=== PATIENT | male | born 1970 | race Caucasian/White ===

== ENCOUNTER 2016-08-11 19:27 | Emergency (ER) | payer SELFPAY ==
[~2016-08-11] VITALS: Ht 195.5 cm; Wt 134.3 kg
[~2016-08-11 19:27] MED LIST: ADVAIR 100/501 E1 INH; ALBUTEROL INH; ALLEGRA180 MG PO; AMOXICILLIN500 M2 PO; ANAPROX DS550 MG PO; ASPIRIN81 M1 PO; ATENOLOL50 MG PO; BACTRIM DS 8001 TA1 PO; CATAPRES0.1 MG PO; CIPRO500 MG PO; CLARITIN10 MG PO; COLCRYS0.6 M1 PO; COREG25 MG PO; DAYPRO600 M1 PO; DOXYCYCLINE MO100 MG PO; FLAGYL500 MG PO; FLEXERIL10 MG PO; FLONASE ALLERG9.9 ML NAS; HYDROCODONE BIT1 T11 PO; INDOCIN25 MG PO; INDOMETHACIN50 MG PO; KEFLEX500 MG PO; LEVOFLOXACIN500 MG PO; LEVOSTATIN PO; LISINOPRIL5 MG PO; MEDROL DOSEPAK4 MG PO; MOTRIN800 MG PO; NEXIUM20 MG PO; NEXIUM40 MG PO; NKHM; NORCO 325 MG-101 TAB PO; NORCO 5-325 TA1 EACH PO; PERCOCET 325 MG1 TA2 PO; PHENERGAN W/DM120 ML PO; PREDNISONE10 MG PO; PREDNISONE20 M1 PO; PREDNISONE20 MG PO; PROAIR HFA0.09 MG/AC IH; PROAIR HFA8.5 GM IH; ROBAXIN500 M1 PO; ROBAXIN750 MG PO; ROBITUSSIN DM 105 ML PO; SKELAXIN800 MG PO; TESSALON PERLE100 MG PO; TOPROL XL25 MG PO; TRAZADONE PO; ULTRAM50 MG PO; VIBRAMYCIN100 MG PO; VICODIN 500 MG-1 TAB PO; ZITHROMAX Z PA250 MG PO; ZITHROMAX250 MG PO; ZYRTEC10 MG PO; Zestril,Prinivil5 MG PO
[2016-08-11 19:34] VITALS: BP 188/97
[2016-08-11] MEDS ORDERED: TESSALON PERLE100 M1 PO (20:09)
== END 2016-08-11 20:27 | disposition home or self-care (01) ==
LOC: ED 19:27
DX: J02.8 Acute pharyngitis due to other specified organisms (principal); F17.200 Nicotine dependence, unspecified, uncomplicated; Z88.6 Allergy status to analgesic agent

== ENCOUNTER 2016-08-13 15:50 | Emergency (ER) | payer SELFPAY ==
[~2016-08-13] VITALS: Ht 195.5 cm; Wt 131.5 kg
[~2016-08-13 15:50] MED LIST changes: +TESSALON PERLE100 M1 PO
[2016-08-13 16:29] VITALS: BP 164/97
[2016-08-13] MEDS ORDERED: TOBREX OPHTH S2.5 ML OPH (17:10)
[2016-08-13] MEDS ORDERED: ACULAR 0.5%3 ML OPH (17:10)
== END 2016-08-13 17:21 | disposition home or self-care (01) ==
LOC: ED 15:50
DX: S05.02XA Injury of conjunctiva and corneal abrasion without foreign body, left eye, initial encounter (principal); F17.200 Nicotine dependence, unspecified, uncomplicated; Z98.890 Other specified postprocedural states; Z95.0 Presence of cardiac pacemaker; Z79.82 Long term (current) use of aspirin; Z79.899 Other long term (current) drug therapy; Z88.5 Allergy status to narcotic agent; Z88.6 Allergy status to analgesic agent; X58.XXXA Exposure to other specified factors, initial encounter; Y93.89 Activity, other specified; Y92.89 Other specified places as the place of occurrence of the external cause; Y99.2 Volunteer activity

== ENCOUNTER 2016-10-09 17:31 | Emergency (ER) | payer SELFPAY ==
[~2016-10-09] VITALS: Ht 195.5 cm; Wt 134.7 kg
[~2016-10-09 17:31] MED LIST changes: +ACULAR 0.5%3 ML OPH; +TOBREX OPHTH S2.5 ML OPH
[2016-10-09 18:01] VITALS: BP 158/92
[2016-10-09] MEDS ORDERED: Motrin,Rufen800 MG PO (18:37)
== END 2016-10-09 18:44 | disposition home or self-care (01) ==
LOC: ED 17:31
DX: S93.401A Sprain of unspecified ligament of right ankle, initial encounter (principal); F17.200 Nicotine dependence, unspecified, uncomplicated; Z88.6 Allergy status to analgesic agent; Z79.899 Other long term (current) drug therapy; X58.XXXA Exposure to other specified factors, initial encounter; Y93.9 Activity, unspecified; Y92.9 Unspecified place or not applicable; Y99.9 Unspecified external cause status

== ENCOUNTER 2016-10-24 02:49 | Emergency (ER) | payer MEDICARE ==
[~2016-10-24] VITALS: Ht 195.5 cm; Wt 134.7 kg
[~2016-10-24 02:49] MED LIST changes: +Motrin,Rufen800 MG PO
[2016-10-24 02:57] VITALS: BP 161/90
[2016-10-24] MEDS ORDERED: MEDROL DOSEPAK4 MG PO (03:10)
[2016-10-24] MEDS ORDERED: AUGMENTIN 875875 MG PO (03:10)
== END 2016-10-24 04:20 | disposition home or self-care (01) ==
LOC: ED 02:49
DX: J02.9 Acute pharyngitis, unspecified (principal); F17.200 Nicotine dependence, unspecified, uncomplicated; Z95.0 Presence of cardiac pacemaker; Z88.6 Allergy status to analgesic agent

== ENCOUNTER → 2016-10-30 | Outpatient (CLI) | payer MEDICARE ==
[~2016-10-30] MED LIST changes: +AUGMENTIN 875875 MG PO
[2016-10-30 10:48] LABS: BASO # 0.1 10*3/uL (0.0-0.1); BASO % 0.6 % (0.0-1.0); EOS # 0.2 10*3/uL (0.0-0.4); HEMATOCRIT 45.2 % (42.0-52.0); HEMOGLOBIN 15.3 g/dl (14.0-18.0); IG # 0.1 10*3/uL (0.0-0.1); LYMPH # 3.4 10*3/uL (1.3-4.4); LYMPH % 38.4 % (27.0-41.0); MEAN CELL VOLUME 85.3 fl (80.0-94.0); MEAN CORPUSCULAR HGB 28.9 pg (27.0-31.0); MEAN CORPUSCULAR HGB CONC 33.8 g/dl (33.0-37.0); MEAN PLATELET VOLUME 9.2 fl (9.6-12.3); MONO # 0.7 10*3/uL (0.1-1.0); MONO % 8.2 % (3.0-9.0); NEUT # 4.4 10*3/uL (2.3-7.9); NEUT % 50.2 % (47.0-73.0); PLATELET COUNT AUTOMATED 350 10*3/uL (130-400); WHITE BLOOD COUNT 8.8 10*3/uL (4.8-10.8)
[2016-10-30 10:53] LABS: BILIRUBIN NEGATIVE (NEGATIVE); BLOOD NEGATIVE (NEGATIVE); CLARITY CLEAR (CLEAR); COLOR YELLOW (YELLOW); GLUCOSE NEGATIVE (NEGATIVE); KETONE TRACE (NEGATIVE); LEUKO ESTERASE NEGATIVE (NEGATIVE); NITRITE NEGATIVE (NEGATIVE); PROTEIN NEGATIVE (NEGATIVE); SPECIFIC GRAVITY 1.015 (1.005-1.030); UROBILINOGEN 0.2 E.U./dl (0.2-1.0)
[2016-10-30 11:09] LABS: ALBUMIN 3.6 gm/dl (3.1-4.5); ALKALINE PHOSPHATASE 77 U/L (45-117); BILIRUBIN, TOTAL 0.6 mg/dl (0.2-1.0); BUN 13 mg/dl (7-24); CARBON DIOXIDE 27 mmol/L (21-32); CHLORIDE 104 mmol/L (98-107); CHOLESTEROL 227 mg/dL (<200); EST GLOM FILT AFRICAN AMERICAN > 60 ml/min; GLUCOSE 84 mg/dL (65-99); HDL CHOLESTEROL 25 mg/dl (40-60); LDL CHOLESTEROL 175 mg/dL (9-159); POTASSIUM 3.5 mmol/L (3.5-5.1); SGOT/AST 17 IU/L (3-35); SGPT/ALT 29 U/L (12-78); SODIUM 139 mmol/L (136-145); TOTAL PROTEIN 7.1 gm/dL (6.4-8.2); TRIGLYCERIDES 134 mg/dl (<150); VLDL CHOLESTEROL 27 mg/dL (6-40)
== END ==
LOC: LAB 10:22
PROVIDERS: Nurse Practitioner Family
DX: I10 Essential (primary) hypertension (principal)

== ENCOUNTER 2016-11-10 19:59 | Emergency (ER) | payer MEDICARE ==
[~2016-11-10] VITALS: Ht 193 cm; Wt 131.5 kg
[2016-11-10 20:05] VITALS: BP 166/90
[2016-11-10] MEDS ORDERED: AMOXICILLIN500 M3 PO (20:27)
== END 2016-11-10 20:58 | disposition home or self-care (01) ==
LOC: ED 19:59
DX: J06.9 Acute upper respiratory infection, unspecified (principal); B97.89 Other viral agents as the cause of diseases classified elsewhere; J02.9 Acute pharyngitis, unspecified; F17.200 Nicotine dependence, unspecified, uncomplicated; Z88.6 Allergy status to analgesic agent; Z79.899 Other long term (current) drug therapy

== ENCOUNTER 2017-02-04 18:38 | Emergency (ER) | payer MEDICARE ==
[~2017-02-04] VITALS: Ht 195.5 cm; Wt 133.8 kg
[~2017-02-04 18:38] MED LIST changes: +AMOXICILLIN500 M3 PO
[2017-02-04 18:54] VITALS: BP 160/84
[2017-02-04] MEDS ORDERED: PERCOCET 5-3251 EACH PO (20:40)
[2017-02-04] MEDS ORDERED: INDOMETHACIN50 MG PO (20:40)
== END 2017-02-04 20:35 | disposition home or self-care (01) ==
LOC: ED 18:38
DX: M79.671 Pain in right foot (principal); M10.9 Gout, unspecified; F17.200 Nicotine dependence, unspecified, uncomplicated; I95.9 Hypotension, unspecified; Z98.890 Other specified postprocedural states; Z79.899 Other long term (current) drug therapy; Z88.5 Allergy status to narcotic agent; Z88.6 Allergy status to analgesic agent; X58.XXXA Exposure to other specified factors, initial encounter; Y93.89 Activity, other specified; Y92.89 Other specified places as the place of occurrence of the external cause; Y99.9 Unspecified external cause status

== ENCOUNTER 2017-03-20 01:47 | Emergency (ER) | payer MEDICARE ==
[~2017-03-20] VITALS: Ht 195.5 cm; Wt 134.7 kg
[~2017-03-20 01:47] MED LIST changes: +PERCOCET 5-3251 EACH PO
[2017-03-20 01:53] VITALS: BP 152/110
[2017-03-20 02:26] LABS: BASO # 0.1 10*3/uL (0.0-0.1); BASO % 0.6 % (0.0-1.0); EOS # 0.3 10*3/uL (0.0-0.4); EOS % 2.5 % (1.0-4.0); HEMATOCRIT 48.4 % (42.0-52.0); HEMOGLOBIN 16.8 g/dl (14.0-18.0); LYMPH # 3.8 10*3/uL (1.3-4.4); MEAN CELL VOLUME 83.9 fl (80.0-94.0); MEAN CORPUSCULAR HGB 29.1 pg (27.0-31.0); MEAN CORPUSCULAR HGB CONC 34.7 g/dl (33.0-37.0); MEAN PLATELET VOLUME 9.4 fl (9.6-12.3); MONO # 0.7 10*3/uL (0.1-1.0); MONO % 6.4 % (3.0-9.0); NEUT # 6.3 10*3/uL (2.3-7.9); NEUT % 56.1 % (47.0-73.0); PLATELET COUNT AUTOMATED 326 10*3/uL (130-400); RED BLOOD COUNT 5.77 10*6/uL (4.50-5.90); RED CELL DISTRI WIDTH 12.4 % (0-14.5); WHITE BLOOD COUNT 11.2 10*3/uL (4.8-10.8)
[2017-03-20 02:38] LABS: ACT PARTIAL THROMBO TIME 26.1 SECONDS (20.8-31.5)
[2017-03-20 02:42] LABS: ALBUMIN 3.9 gm/dl (3.1-4.5); BUN 12 mg/dl (7-24); CHLORIDE 103 mmol/L (98-107); CREATININE 1.08 mg/dL (0.70-1.30); SGOT/AST 22 IU/L (3-35); SGPT/ALT 30 U/L (12-78); SODIUM 139 mmol/L (136-145); TOTAL PROTEIN 7.6 gm/dL (6.4-8.2)
[2017-03-20 02:44] LABS: ALKALINE PHOSPHATASE 77 U/L (45-117)
[2017-03-20 02:45] LABS: TROPONIN I < 0.015 ng/ml (<0.045)
[2017-03-20] MEDS ORDERED: CHLORASEPTIC S1 EACH PO (03:23)
== END 2017-03-20 03:44 | disposition left against medical advice (07) ==
LOC: ED 01:47
PROVIDERS: Student in an Organized Health Care Education/Training Program
DX: M10.9 Gout, unspecified (principal); R42 Dizziness and giddiness; R00.2 Palpitations; J02.9 Acute pharyngitis, unspecified; J06.9 Acute upper respiratory infection, unspecified; I95.9 Hypotension, unspecified; F17.200 Nicotine dependence, unspecified, uncomplicated; F10.10 Alcohol abuse, uncomplicated; Z95.0 Presence of cardiac pacemaker; Z88.6 Allergy status to analgesic agent; Z88.5 Allergy status to narcotic agent; Z88.8 Allergy status to other drugs, medicaments and biological substances; Z79.899 Other long term (current) drug therapy

== ENCOUNTER 2017-07-10 19:25 | Emergency (ER) | payer MEDICARE ==
[~2017-07-10] VITALS: Ht 195.5 cm; Wt 138.3 kg
[~2017-07-10 19:25] MED LIST changes: +CHLORASEPTIC S1 EACH PO
[2017-07-10 19:26] VITALS: BP 167/109
[2017-07-10] MEDS ORDERED: ASPIR LOW81 MG PO (19:37)
[2017-07-10] MEDS ORDERED: Motrin,Rufen800 MG PO (21:19)
[2017-07-10] MEDS ORDERED: CYCLOBENZAPRINE10 MG PO (21:19)
== END 2017-07-10 21:23 | disposition home or self-care (01) ==
LOC: ED 19:25
DX: S39.012A Strain of muscle, fascia and tendon of lower back, initial encounter (principal); F17.200 Nicotine dependence, unspecified, uncomplicated; Z88.6 Allergy status to analgesic agent; Z88.8 Allergy status to other drugs, medicaments and biological substances; Z79.899 Other long term (current) drug therapy; Z79.82 Long term (current) use of aspirin; X58.XXXA Exposure to other specified factors, initial encounter; Y93.89 Activity, other specified; Y92.89 Other specified places as the place of occurrence of the external cause; Y99.8 Other external cause status

== ENCOUNTER 2017-09-14 05:16 | Emergency (ER) | payer OTHER ==
[~2017-09-14] VITALS: Ht 195.5 cm; Wt 143.8 kg
[~2017-09-14 05:16] MED LIST changes: +ASPIR LOW81 MG PO; +CYCLOBENZAPRINE10 MG PO
[2017-09-14 05:17] VITALS: BP 164/89
[2017-09-14] MEDS ORDERED: NEXIUM20 M1 PO (05:18)
[2017-09-14] MEDS ORDERED: MELOXICAM7.5 MG PO (05:19)
[2017-09-14] MEDS ORDERED: PREDNISONE20 M1 PO (06:08)
[2017-09-14] MEDS ORDERED: ZITHROMAX250 MG PO (06:08)
== END 2017-09-14 06:18 | disposition home or self-care (01) ==
LOC: ED 05:16
DX: J02.9 Acute pharyngitis, unspecified (principal); J20.9 Acute bronchitis, unspecified; F17.200 Nicotine dependence, unspecified, uncomplicated; Z98.890 Other specified postprocedural states; Z79.82 Long term (current) use of aspirin; Z79.899 Other long term (current) drug therapy; Z88.5 Allergy status to narcotic agent; Z88.6 Allergy status to analgesic agent

== ENCOUNTER 2017-09-25 16:58 | Emergency (ER) | payer OTHER ==
[~2017-09-25] VITALS: Ht 195.5 cm; Wt 136.1 kg
[~2017-09-25 16:58] MED LIST changes: +MELOXICAM7.5 MG PO; +NEXIUM20 M1 PO
[2017-09-25 17:01] VITALS: BP 157/99
== END 2017-09-25 17:11 | disposition home or self-care (01) ==
LOC: ED 16:58
DX: T63.484A Toxic effect of venom of other arthropod, undetermined, initial encounter (principal); F17.200 Nicotine dependence, unspecified, uncomplicated; Z98.890 Other specified postprocedural states; Z95.0 Presence of cardiac pacemaker; Z79.82 Long term (current) use of aspirin; Z79.899 Other long term (current) drug therapy; Z88.5 Allergy status to narcotic agent; Z88.6 Allergy status to analgesic agent; Z88.8 Allergy status to other drugs, medicaments and biological substances; Y92.9 Unspecified place or not applicable

== ENCOUNTER 2018-01-06 09:17 | Emergency (ER) | payer OTHER ==
[~2018-01-06] VITALS: Ht 195.5 cm; Wt 137.0 kg
--- NOTE | ~2018-01-06 | EKG ---
[place], [place] ELECTROCARDIOGRAM REPORT NAME: TESS LINDER UNIT #: [id number] ROOM: DOCTOR: EPIPHANY DRAFT REPORT BIRTHDATE: [birth year] [facility] Test Date: 2018-01-06 Test Time: 09:23:49 Pat Name: TESS LINDER Department: Room: Gender: Zig Zag Stitcher: Radha Dang : 1970 Requested By: EDDI RAMIREZ Order Number: [id number] Reading MD: Reji Boyer MD Measurements Intervals [place] Rate: 64 P: 21 SC: 185 QRS: 88 QRSD: 122 T: -10 QT: 414 QTc: 427 Interpretive Statements Sinus rhythm Nonspecific intraventricular conduction delay Borderline repolarization abnormality Electronically Signed On 01-07-2018 4:16:13 PDT by Reji Boyer MD CM:EKGRPT:ELECTROCARDIOGRAM REPORT [id number] EDDI EDWARDS DRAFT REPORT EDDI RAMIREZ M.D.
[~2018-01-06 09:17] MED LIST changes: +CEPHALEXIN500 M1 PO; +SEPTDS PO
[2018-01-06 09:34] LABS: BASO % 0.4 % (0.0-1.0); EOS # 0.3 10*3/uL (0.0-0.4); EOS % 2.6 % (1.0-4.0); LYMPH % 38.8 % (27.0-41.0); MEAN CELL VOLUME 84.9 fl (80.0-94.0); MEAN CORPUSCULAR HGB 29.5 pg (27.0-31.0); MEAN CORPUSCULAR HGB CONC 34.8 g/dl (33.0-37.0); MEAN PLATELET VOLUME 9.1 fl (9.6-12.3); MONO # 0.8 10*3/uL (0.1-1.0); MONO % 7.7 % (3.0-9.0); NEUT # 5.2 10*3/uL (2.3-7.9); NEUT % 50.3 % (47.0-73.0); PLATELET COUNT AUTOMATED 342 10*3/uL (130-400); RED BLOOD COUNT 5.42 10*6/uL (4.50-5.90); RED CELL DISTRI WIDTH 11.8 % (0-14.5); WHITE BLOOD COUNT 10.3 10*3/uL (4.8-10.8)
[2018-01-06 09:51] LABS: ALBUMIN 3.8 gm/dl (3.1-4.5); ALKALINE PHOSPHATASE 76 U/L (45-117); BUN 9 mg/dl (7-24); CHLORIDE 105 mmol/L (98-107); CREATININE 1.03 mg/dL (0.70-1.30); POTASSIUM 3.6 mmol/L (3.5-5.1); SGOT/AST 15 IU/L (3-35); SGPT/ALT 43 U/L (12-78); SODIUM 139 mmol/L (136-145); TOTAL PROTEIN 7.7 gm/dL (6.4-8.2)
[2018-01-06 09:53] LABS: TROPONIN I < 0.015 ng/ml (<0.045)
[2018-01-06 10:00] LABS: ACT PARTIAL THROMBO TIME 25.7 SECONDS (20.8-31.5); INTERNATIONAL NORM RATIO 0.9 (2.0-3.5)
[2018-01-06 10:15] VITALS: BP 147/87
[2018-01-06] MEDS ORDERED: HYDROXYZINE HYD50 MG PO (10:39)
[2018-01-06] MEDS ORDERED: ZOFRAN ODT4 MG SL (10:47)
== END 2018-01-06 10:59 | disposition home or self-care (01) ==
LOC: ED 09:17
PROVIDERS: Emergency Medicine
DX: G47.00 Insomnia, unspecified (principal); I10 Essential (primary) hypertension; F17.200 Nicotine dependence, unspecified, uncomplicated; Z88.5 Allergy status to narcotic agent; Z95.0 Presence of cardiac pacemaker; Z88.6 Allergy status to analgesic agent; Z79.2 Long term (current) use of antibiotics; Z79.899 Other long term (current) drug therapy; Z79.82 Long term (current) use of aspirin

== ENCOUNTER → 2018-02-27 | Outpatient (CLI) | payer OTHER ==
[~2018-02-27] MED LIST changes: +HYDROXYZINE HYD50 MG PO; +ZOFRAN ODT4 MG SL
--- NOTE | ~2018-02-27 | HM ---
[place], [place] HOLTER MONITOR REPORT NAME: TESS LINDER UNIT #: [id number] ROOM: DOCTOR: BETTY HERNANDEZ MD BIRTHDATE: [birth year] DOS: 03/04/2018 48-HOUR HOLTER MONITOR FINDINGS: The patient remained in sinus rhythm throughout the entire period. Minimum heart rate is 49, average is 69, maximum is 102. As mentioned, the patient is in sinus rhythm throughout the entire period. Isolated premature ventricular contractions are present. No significant ventricular tachycardia. No PACs. No bradycardia or tachycardia. FINAL IMPRESSION: Sinus rhythm with isolated PACs. No significant ventricular or supraventricular dysrhythmia other than PVCs. Heart rate and blood pressure are normal. No bradycardic or tachycardic episodes. BETTY HERNANDEZ MD CM:HOLTER:HOLTER MONITOR REPORT [id number] BETTY HERNANDEZ MD
--- NOTE | ~2018-02-27 | EKG ---
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
== END | disposition home or self-care (01) ==
LOC: CARD 10:30
DX: R00.2 Palpitations (principal); R06.02 Shortness of breath; I10 Essential (primary) hypertension; E78.5 Hyperlipidemia, unspecified; J45.909 Unspecified asthma, uncomplicated; I25.2 Old myocardial infarction; Z87.891 Personal history of nicotine dependence; Z95.2 Presence of prosthetic heart valve

== ENCOUNTER 2019-01-21 19:08 | Emergency (ER) | payer OTHER ==
[~2019-01-21] VITALS: Ht 198.1 cm; Wt 139.7 kg
--- NOTE | ~2019-01-21 | EKG ---
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: Radha Dang : 1970 Requested By: CATHY DESIR Order Number: [id number] Reading MD: Jean Rowe MD Measurements Intervals [place] Rate: 74 P: 39 ND: 178 QRS: 85 QRSD: 126 T: 6 QT: 385 QTc: 428 Interpretive Statements Sinus rhythm Nonspecific intraventricular conduction delay Inferior infarct, age indeterminate Baseline wander in lead(s) V3 Compared to ECG 02/27/2018 11:17:03 Myocardial infarct finding now present ST (T wave) deviation no longer present Electronically Signed On 01-23-2019 5:54:58 PDT by Jean Rowe MD CM:EKGRPT:ELECTROCARDIOGRAM REPORT [id number] CATHY MERIDA DRAFT REPORT CATHY DESIR DO
[~2019-01-21 19:08] MED LIST changes: +ZANTAC 150150 MG PO
[2019-01-21 19:10] VITALS: BP 182/103
--- NOTE | 2019-01-21 19:12 | NUR ---
NOTIFIED DR DESIR OF COMPLAINTS OF CP, SOB, CLAMMY, AND CARDIAC HX. REQUESTED ASA ORDER AND VERBAL ORDER FOR 324 MG OF ASA GIVEN.
--- NOTE | 2019-01-21 19:15 | NUR ---
ASA given as ordered.
[2019-01-21 19:21] LABS: BASO # 0.1 10*3/uL (0.0-0.1); BASO % 0.6 % (0.0-1.0); EOS # 0.3 10*3/uL (0.0-0.4); EOS % 2.6 % (1.0-4.0); HEMATOCRIT 47.3 % (42.0-52.0); HEMOGLOBIN 16.1 g/dl (14.0-18.0); LYMPH # 3.8 10*3/uL (1.3-4.4); LYMPH % 37.3 % (27.0-41.0); MEAN CELL VOLUME 87.1 fl (80.0-94.0); MEAN CORPUSCULAR HGB 29.7 pg (27.0-31.0); MEAN PLATELET VOLUME 9.5 fl (9.6-12.3); MONO # 0.9 10*3/uL (0.1-1.0); MONO % 8.4 % (3.0-9.0); NEUT # 5.2 10*3/uL (2.3-7.9); NEUT % 50.7 % (47.0-73.0); PLATELET COUNT AUTOMATED 380 10*3/uL (130-400); RED BLOOD COUNT 5.43 10*6/uL (4.50-5.90); RED CELL DISTRI WIDTH 12.2 % (0-14.5); WHITE BLOOD COUNT 10.2 10*3/uL (4.8-10.8)
[2019-01-21 19:35] LABS: ACT PARTIAL THROMBO TIME 26.1 SECONDS (20.0-32.1); INTERNATIONAL NORM RATIO 0.9 (2.0-3.5)
[2019-01-21 19:38] LABS: ALBUMIN 3.9 gm/dl (3.1-4.5); ALKALINE PHOSPHATASE 75 U/L (45-117); BUN 9 mg/dl (7-24); CHLORIDE 103 mmol/L (98-107); CREATININE 1.24 mg/dL (0.70-1.30); POTASSIUM 3.5 mmol/L (3.5-5.1); SGOT/AST 20 IU/L (3-35); SGPT/ALT 48 U/L (12-78); SODIUM 136 mmol/L (136-145); TOTAL PROTEIN 7.9 gm/dL (6.4-8.2)
[2019-01-21 19:42] LABS: TROPONIN I < 0.015 ng/ml (<0.045)
[2019-01-21 20:06] VITALS: BP 145/84
[2019-01-21 20:36] VITALS: BP 133/79
== END 2019-01-21 20:44 ==
LOC: ED 19:08 → EDHOLD 20:27 → ED 20:44
PROVIDERS: Emergency Medicine
DX: R07.89 Other chest pain (principal); R20.0 Anesthesia of skin; R00.2 Palpitations; R61 Generalized hyperhidrosis; I25.2 Old myocardial infarction; Z87.891 Personal history of nicotine dependence; Z88.5 Allergy status to narcotic agent; Z88.8 Allergy status to other drugs, medicaments and biological substances; Z79.899 Other long term (current) drug therapy; Z79.82 Long term (current) use of aspirin; Z95.0 Presence of cardiac pacemaker

== ENCOUNTER → 2019-02-17 | Outpatient (CLI) | payer OTHER ==
[2019-02-17 10:22] LABS: BASO # 0.1 10*3/uL (0.0-0.1); BASO % 0.6 % (0.0-1.0); EOS # 0.2 10*3/uL (0.0-0.4); EOS % 2.2 % (1.0-4.0); HEMATOCRIT 48.7 % (42.0-52.0); HEMOGLOBIN 16.5 g/dl (14.0-18.0); LYMPH # 3.2 10*3/uL (1.3-4.4); LYMPH % 36.5 % (27.0-41.0); MEAN CELL VOLUME 87.4 fl (80.0-94.0); MEAN CORPUSCULAR HGB 29.6 pg (27.0-31.0); MEAN CORPUSCULAR HGB CONC 33.9 g/dl (33.0-37.0); MEAN PLATELET VOLUME 9.8 fl (9.6-12.3); MONO # 0.6 10*3/uL (0.1-1.0); MONO % 6.9 % (3.0-9.0); NEUT # 4.7 10*3/uL (2.3-7.9); NEUT % 53.6 % (47.0-73.0); PLATELET COUNT AUTOMATED 381 10*3/uL (130-400); RED BLOOD COUNT 5.57 10*6/uL (4.50-5.90); WHITE BLOOD COUNT 8.7 10*3/uL (4.8-10.8)
[2019-02-17 10:24] LABS: ALBUMIN 3.9 gm/dl (3.1-4.5); ALKALINE PHOSPHATASE 80 U/L (45-117); BUN 13 mg/dl (7-24); CHLORIDE 105 mmol/L (98-107); CHOLESTEROL 244 mg/dL (<200); CREATININE 1.19 mg/dL (0.70-1.30); HDL CHOLESTEROL 25 mg/dl (40-60); LDL CHOLESTEROL 173 mg/dL (9-159); POTASSIUM 3.9 mmol/L (3.5-5.1); SGOT/AST 17 IU/L (3-35); SGPT/ALT 38 U/L (12-78); SODIUM 138 mmol/L (136-145); TOTAL PROTEIN 7.8 gm/dL (6.4-8.2); TRIGLYCERIDES 228 mg/dl (<150); VLDL CHOLESTEROL 46 mg/dL (6-40)
== END | disposition home or self-care (01) ==
LOC: US 02-11 10:30 → LAB 09:15 → US 09:30
PROVIDERS: Nurse Practitioner Family
DX: E88.89 Other specified metabolic disorders (principal); I10 Essential (primary) hypertension; E78.5 Hyperlipidemia, unspecified; R79.89 Other specified abnormal findings of blood chemistry

== ENCOUNTER 2019-04-17 11:44 | Emergency (ER) | payer OTHER ==
[~2019-04-17] VITALS: Ht 198.1 cm; Wt 137.0 kg
[2019-04-17 11:48] VITALS: BP 139/93
== END 2019-04-17 13:30 | disposition home or self-care (01) ==
LOC: ED 11:44
DX: H61.21 Impacted cerumen, right ear (principal); I10 Essential (primary) hypertension; K21.9 Gastro-esophageal reflux disease without esophagitis; I25.2 Old myocardial infarction; F17.200 Nicotine dependence, unspecified, uncomplicated; Z88.5 Allergy status to narcotic agent; Z88.8 Allergy status to other drugs, medicaments and biological substances; Z79.899 Other long term (current) drug therapy; Z79.82 Long term (current) use of aspirin

== ENCOUNTER 2019-06-22 09:51 | Emergency (ER) | payer OTHER ==
[2019-06-22 10:06] VITALS: BP 164/81
[2019-06-22] MEDS ORDERED: NAPROSYN500 MG PO (10:54)
[2019-06-22] MEDS ORDERED: METHOCARBAMOL500 M1 PO (10:54)
[2019-06-22] MEDS ORDERED: MEDROL DOSEPAK4 MG PO (10:54)
== END 2019-06-22 11:01 | disposition home or self-care (01) ==
LOC: ED 09:51
DX: S39.012A Strain of muscle, fascia and tendon of lower back, initial encounter (principal); Z88.6 Allergy status to analgesic agent; Z88.8 Allergy status to other drugs, medicaments and biological substances; Z79.899 Other long term (current) drug therapy; Z79.82 Long term (current) use of aspirin; Z72.0 Tobacco use; X50.1XXA Overexertion from prolonged static or awkward postures, initial encounter; Y93.89 Activity, other specified; Y92.092 Bedroom in other non-institutional residence as the place of occurrence of the external cause; Y99.8 Other external cause status

== ENCOUNTER 2019-08-01 18:47 | Emergency (ER) | payer OTHER ==
[~2019-08-01] VITALS: Ht 198.1 cm; Wt 132.0 kg
[~2019-08-01 18:47] MED LIST changes: +METHOCARBAMOL500 M1 PO; +NAPROSYN500 MG PO
[2019-08-01 18:53] VITALS: BP 137/86
== END 2019-08-01 22:01 | disposition home or self-care (01) ==
LOC: ED 18:47
DX: M10.9 Gout, unspecified (principal); M19.90 Unspecified osteoarthritis, unspecified site; M79.675 Pain in left toe(s); F32.9 Major depressive disorder, single episode, unspecified; I25.2 Old myocardial infarction; I10 Essential (primary) hypertension; Z95.0 Presence of cardiac pacemaker; Z88.5 Allergy status to narcotic agent; Z88.8 Allergy status to other drugs, medicaments and biological substances; Z79.899 Other long term (current) drug therapy; Z79.82 Long term (current) use of aspirin

== ENCOUNTER 2019-10-14 02:42 | Emergency (ER) | payer OTHER ==
[~2019-10-14] VITALS: Ht 198.1 cm; Wt 134.7 kg
[2019-10-14 02:47] VITALS: BP 159/97
[2019-10-14] MEDS ORDERED: IBUPROFEN600 MG PO (04:14)
[2019-10-14] MEDS ORDERED: CYCLOBENZAPRINE10 MG PO (04:23)
== END 2019-10-14 04:27 | disposition home or self-care (01) ==
LOC: ED 02:42
DX: S46.211A Strain of muscle, fascia and tendon of other parts of biceps, right arm, initial encounter (principal); M19.90 Unspecified osteoarthritis, unspecified site; M10.9 Gout, unspecified; I10 Essential (primary) hypertension; I25.2 Old myocardial infarction; Z88.6 Allergy status to analgesic agent; Z88.8 Allergy status to other drugs, medicaments and biological substances; Z79.899 Other long term (current) drug therapy; Z79.82 Long term (current) use of aspirin; X50.9XXA Other and unspecified overexertion or strenuous movements or postures, initial encounter; Y93.89 Activity, other specified; Y92.89 Other specified places as the place of occurrence of the external cause; Y99.8 Other external cause status

== ENCOUNTER 2019-11-02 10:35 | Emergency (ER) | payer OTHER ==
[~2019-11-02] VITALS: Ht 198.1 cm; Wt 133.8 kg
[~2019-11-02 10:35] MED LIST changes: +IBUPROFEN600 MG PO
[2019-11-02 10:43] VITALS: BP 126/70
[2019-11-02] MEDS ORDERED: INDOMETHACIN50 MG PO (11:00)
== END 2019-11-02 11:08 | disposition home or self-care (01) ==
LOC: ED 10:35
DX: M10.072 Idiopathic gout, left ankle and foot (principal); I10 Essential (primary) hypertension; I25.2 Old myocardial infarction; Z76.0 Encounter for issue of repeat prescription; Z79.899 Other long term (current) drug therapy; Z79.82 Long term (current) use of aspirin; Z88.6 Allergy status to analgesic agent

== ENCOUNTER 2019-12-13 00:43 | Emergency (ER) | payer OTHER ==
[~2019-12-13] VITALS: Ht 198.1 cm; Wt 132.0 kg
== END 2019-12-13 03:00 | disposition home or self-care (01) ==
LOC: ED 00:43
DX: S66.811A Strain of other specified muscles, fascia and tendons at wrist and hand level, right hand, initial encounter (principal); I10 Essential (primary) hypertension; F32.9 Major depressive disorder, single episode, unspecified; I25.2 Old myocardial infarction; K21.9 Gastro-esophageal reflux disease without esophagitis; M10.9 Gout, unspecified; Z88.8 Allergy status to other drugs, medicaments and biological substances; Z79.899 Other long term (current) drug therapy; Z79.82 Long term (current) use of aspirin; X58.XXXA Exposure to other specified factors, initial encounter; Y93.89 Activity, other specified; Y92.89 Other specified places as the place of occurrence of the external cause; Y99.8 Other external cause status

== ENCOUNTER 2019-12-17 09:23 | Emergency (ER) | payer OTHER ==
[~2019-12-17] VITALS: Wt 131.5 kg
[2019-12-17 09:27] VITALS: BP 117/85
[2019-12-17] MEDS ORDERED: IBUPROFEN600 MG PO (10:24)
[2019-12-17] MEDS ORDERED: CEPHALEXIN500 M1 PO (10:24)
== END 2019-12-17 11:36 | disposition home or self-care (01) ==
LOC: ED 09:23
DX: L03.116 Cellulitis of left lower limb (principal); Z88.6 Allergy status to analgesic agent; Z88.8 Allergy status to other drugs, medicaments and biological substances; Z79.899 Other long term (current) drug therapy; Z79.82 Long term (current) use of aspirin; Z72.0 Tobacco use

== ENCOUNTER 2020-01-10 14:53 | Emergency (ER) | payer OTHER ==
[~2020-01-10] VITALS: Ht 182.8 cm; Wt 131.5 kg
[2020-01-10 15:10] VITALS: BP 134/70
[2020-01-10] MEDS ORDERED: AMOXICILLIN500 M2 PO (16:00)
== END 2020-01-10 16:03 | disposition home or self-care (01) ==
LOC: ED 14:53
DX: J02.9 Acute pharyngitis, unspecified (principal); I10 Essential (primary) hypertension; I25.2 Old myocardial infarction; K21.9 Gastro-esophageal reflux disease without esophagitis; Z88.5 Allergy status to narcotic agent; Z88.8 Allergy status to other drugs, medicaments and biological substances; Z79.899 Other long term (current) drug therapy; Z79.82 Long term (current) use of aspirin; Z95.810 Presence of automatic (implantable) cardiac defibrillator; Z87.891 Personal history of nicotine dependence

== ENCOUNTER 2020-01-13 03:29 | Emergency (ER) | payer OTHER | END 2020-01-13 05:11 | disposition left against medical advice (07) | LOC: ED 03:29 | DX: M79.674 Pain in right toe(s) (principal); M79.89 Other specified soft tissue disorders; M10.9 Gout, unspecified; Z88.6 Allergy status to analgesic agent; Z88.8 Allergy status to other drugs, medicaments and biological substances; Z79.899 Other long term (current) drug therapy; Z79.82 Long term (current) use of aspirin ==

== ENCOUNTER 2020-04-26 09:00 | Emergency (ER) | payer OTHER ==
[~2020-04-26] VITALS: Wt 123.4 kg
[2020-04-26 09:06] VITALS: BP 166/85
== END 2020-04-26 11:58 | disposition home or self-care (01) ==
LOC: ED 09:00
DX: M13.831 Other specified arthritis, right wrist (principal); Z88.6 Allergy status to analgesic agent; Z88.8 Allergy status to other drugs, medicaments and biological substances; Z79.899 Other long term (current) drug therapy; Z79.82 Long term (current) use of aspirin; Z72.0 Tobacco use

== ENCOUNTER 2020-08-07 17:13 | Emergency (ER) | payer OTHER ==
[~2020-08-07] VITALS: Ht 198.1 cm; Wt 132.0 kg
[2020-08-07 17:30] VITALS: BP 143/93
[2020-08-07 17:51] LABS: BASO # 0.1 10*3/uL (0.0-0.1); BASO % 0.8 % (0.0-1.0); EOS # 0.3 10*3/uL (0.0-0.4); EOS % 3.5 % (1.0-4.0); HEMATOCRIT 43.6 % (42.0-52.0); LYMPH # 2.6 10*3/uL (1.3-4.4); LYMPH % 36.8 % (27.0-41.0); MEAN CELL VOLUME 85.8 fl (80.0-94.0); MEAN CORPUSCULAR HGB 29.3 pg (27.0-31.0); MEAN CORPUSCULAR HGB CONC 34.2 g/dl (33.0-37.0); MEAN PLATELET VOLUME 8.8 fl (9.6-12.3); MONO # 0.6 10*3/uL (0.1-1.0); NEUT # 3.5 10*3/uL (2.3-7.9); NEUT % 49.6 % (47.0-73.0); PLATELET COUNT AUTOMATED 297 10*3/uL (130-400); RED BLOOD COUNT 5.08 10*6/uL (4.50-5.90); WHITE BLOOD COUNT 7.1 10*3/uL (4.8-10.8)
[2020-08-07 18:09] LABS: ALBUMIN 3.3 gm/dl (3.1-4.5); ALKALINE PHOSPHATASE 60 U/L (45-117); BUN 16 mg/dl (7-24); CHLORIDE 109 mmol/L (98-107); CREATININE 1.19 mg/dL (0.70-1.30); POTASSIUM 3.8 mmol/L (3.5-5.1); SGOT/AST 9 IU/L (3-35); SGPT/ALT 26 U/L (12-78); SODIUM 140 mmol/L (136-145); TOTAL PROTEIN 6.9 gm/dL (6.4-8.2)
[2020-08-07 18:10] LABS: TROPONIN I < 0.015 ng/ml (<0.045)
[2020-08-07] MEDS ORDERED: TOPROL XL50 M1 PO (19:27)
== END 2020-08-07 19:31 | disposition home or self-care (01) ==
LOC: ED 17:13
PROVIDERS: Nurse Practitioner Family
DX: Z76.0 Encounter for issue of repeat prescription (principal); R07.9 Chest pain, unspecified; Z88.8 Allergy status to other drugs, medicaments and biological substances; Z88.5 Allergy status to narcotic agent; Z79.899 Other long term (current) drug therapy; Z95.0 Presence of cardiac pacemaker; Z98.890 Other specified postprocedural states; Z87.891 Personal history of nicotine dependence

== ENCOUNTER → 2020-11-29 | Outpatient (CLI) | payer OTHER ==
[~2020-11-29] MED LIST changes: +TOPROL XL50 M1 PO
== END | disposition home or self-care (01) ==
LOC: RAD 10:45
PROVIDERS: ATTEND Internal Medicine
DX: M51.34 Other intervertebral disc degeneration, thoracic region (principal); M48.04 Spinal stenosis, thoracic region; M85.88 Other specified disorders of bone density and structure, other site

== ENCOUNTER 2021-01-24 17:53 | Emergency (ER) | payer OTHER ==
[~2021-01-24] VITALS: Wt 135.2 kg
[2021-01-24 17:59] VITALS: BP 155/97
== END 2021-01-24 20:43 | disposition home or self-care (01) ==
LOC: ED 17:53
DX: M72.2 Plantar fascial fibromatosis (principal); Z88.6 Allergy status to analgesic agent; Z79.899 Other long term (current) drug therapy; Z79.82 Long term (current) use of aspirin

== ENCOUNTER 2021-03-05 10:14 | Emergency (ER) | payer OTHER ==
[2021-03-05 10:28] VITALS: BP 150/104
== END 2021-03-05 12:00 | disposition home or self-care (01) ==
LOC: ED 10:14
DX: M25.461 Effusion, right knee (principal); M10.9 Gout, unspecified; Z88.6 Allergy status to analgesic agent; Z79.899 Other long term (current) drug therapy; Z79.82 Long term (current) use of aspirin

== ENCOUNTER 2021-03-23 09:43 | Emergency (ER) | payer OTHER ==
[~2021-03-23] VITALS: Ht 198.1 cm; Wt 136.1 kg
[2021-03-23 09:49] VITALS: BP 136/82
[2021-03-23] MEDS ORDERED: DECADRON6 M1 PO (12:04)
== END 2021-03-23 13:46 | disposition home or self-care (01) ==
LOC: ED 09:43
DX: U07.1 COVID-19 (principal)

== ENCOUNTER → 2021-07-03 | Outpatient (CLI) | payer MEDICARE, MEDICAID ==
[~2021-07-03] MED LIST changes: +DECADRON6 M1 PO
== END | disposition home or self-care (01) ==
LOC: CT 08:24
PROVIDERS: ATTEND Internal Medicine
DX: M19.011 Primary osteoarthritis, right shoulder (principal)

== ENCOUNTER → 2021-09-26 | Outpatient (CLI) | payer OTHER, MEDICAID | END | disposition home or self-care (01) | LOC: RAD 09:10 | PROVIDERS: ATTEND Internal Medicine | DX: M54.50 Low back pain, unspecified (principal); M25.78 Osteophyte, vertebrae ==

== ENCOUNTER 2022-01-03 20:12 | Emergency (ER) | payer OTHER, MEDICAID ==
[~2022-01-03] VITALS: Ht 198.1 cm; Wt 136.1 kg
[2022-01-03 20:14] VITALS: BP 140/78
[2022-01-03] MEDS ORDERED: CLARITIN-D 121 EACH PO (20:19)
[2022-01-03] MEDS ORDERED: LOSARTAN POTASS50 M1 PO (20:20)
[2022-01-03] MEDS ORDERED: GABAPENTIN800 MG PO (20:20)
[2022-01-03] MEDS ORDERED: VITAMIN D250 MCG PO (20:21)
== END 2022-01-03 23:53 | disposition left against medical advice (07) ==
LOC: ED 20:12
DX: M25.562 Pain in left knee (principal); Z53.21 Procedure and treatment not carried out due to patient leaving prior to being seen by health care provider

== ENCOUNTER → 2022-06-22 | Outpatient (CLI) | payer OTHER, MEDICAID ==
[~2022-06-22] MED LIST changes: +CLARITIN-D 121 EACH PO; +GABAPENTIN800 MG PO; +LOSARTAN POTASS50 M1 PO; +VITAMIN D250 MCG PO
== END | disposition home or self-care (01) ==
LOC: ORTHO 01:08
PROVIDERS: ATTEND Orthopaedic Surgery
DX: M25.711 Osteophyte, right shoulder (principal)

== ENCOUNTER → 2022-08-01 | Outpatient (CLI) | payer OTHER, MEDICAID | END | disposition home or self-care (01) | LOC: RAD 13:02 | PROVIDERS: ATTEND Internal Medicine | DX: M25.551 Pain in right hip (principal) ==

== ENCOUNTER 2022-08-10 17:13 | Emergency (ER) | payer OTHER, MEDICAID ==
[2022-08-10 18:33] VITALS: BP 147/84
== END 2022-08-10 19:11 | disposition home or self-care (01) ==
LOC: ED 17:13
DX: M54.50 Low back pain, unspecified (principal); Z88.8 Allergy status to other drugs, medicaments and biological substances; Z79.899 Other long term (current) drug therapy; Z79.82 Long term (current) use of aspirin; Z98.890 Other specified postprocedural states; Z87.891 Personal history of nicotine dependence

== ENCOUNTER 2022-09-30 06:49 | Emergency (ER) | payer OTHER, MEDICAID ==
[~2022-09-30] VITALS: Ht 198.1 cm; Wt 136.1 kg
[2022-09-30 07:16] VITALS: BP 150/76
[2022-09-30] MEDS ORDERED: ZITHROMAX250 MG PO (07:40)
[2022-09-30] MEDS ORDERED: PREDNISONE10 MG PO (07:40)
== END 2022-09-30 07:54 | disposition home or self-care (01) ==
LOC: ED 06:49
DX: J02.9 Acute pharyngitis, unspecified (principal); I10 Essential (primary) hypertension; F32.A Depression, unspecified; I25.2 Old myocardial infarction; M10.9 Gout, unspecified; Z88.5 Allergy status to narcotic agent; Z88.8 Allergy status to other drugs, medicaments and biological substances; Z98.890 Other specified postprocedural states; Z72.0 Tobacco use

== ENCOUNTER 2023-03-14 11:04 | Emergency (ER) | payer OTHER, MEDICAID ==
[~2023-03-14] VITALS: Ht 198.1 cm; Wt 136.1 kg
[2023-03-14 11:17] VITALS: BP 173/82
[2023-03-14] MEDS ORDERED: PREDNISONE50 MG PO (11:25)
[2023-03-14] MEDS ORDERED: METHOCARBAMOL500 M1 PO (11:25)
== END 2023-03-14 11:40 | disposition home or self-care (01) ==
LOC: ED 11:04
DX: M54.41 Lumbago with sciatica, right side (principal); F17.200 Nicotine dependence, unspecified, uncomplicated; Z88.5 Allergy status to narcotic agent; Z88.8 Allergy status to other drugs, medicaments and biological substances; Z79.2 Long term (current) use of antibiotics; Z79.899 Other long term (current) drug therapy; Z79.82 Long term (current) use of aspirin; Z98.890 Other specified postprocedural states; Z95.0 Presence of cardiac pacemaker

== ENCOUNTER → 2023-03-20 | Outpatient (CLI) | payer OTHER, MEDICAID ==
[~2023-03-20] MED LIST changes: +PREDNISONE50 MG PO
== END | disposition home or self-care (01) ==
LOC: RAD 12:49
PROVIDERS: ATTEND Internal Medicine
DX: M51.37 Other intervertebral disc degeneration, lumbosacral region (principal); M48.07 Spinal stenosis, lumbosacral region; M53.3 Sacrococcygeal disorders, not elsewhere classified; M47.817 Spondylosis without myelopathy or radiculopathy, lumbosacral region

== ENCOUNTER 2023-04-14 18:31 | Emergency (ER) | payer OTHER, MEDICAID ==
[~2023-04-14] VITALS: Ht 195.5 cm; Wt 135.2 kg
[2023-04-14 19:09] VITALS: BP 171/105
[2023-04-14] MEDS ORDERED: PREDNISONE50 MG PO (22:02)
== END 2023-04-14 22:18 | disposition home or self-care (01) ==
LOC: ED 18:31
DX: M25.561 Pain in right knee (principal); I10 Essential (primary) hypertension; K21.9 Gastro-esophageal reflux disease without esophagitis; F32.A Depression, unspecified; I25.2 Old myocardial infarction; M10.9 Gout, unspecified; Z88.5 Allergy status to narcotic agent; Z88.8 Allergy status to other drugs, medicaments and biological substances; Z98.890 Other specified postprocedural states; Z72.0 Tobacco use

== ENCOUNTER 2023-07-14 12:55 | Emergency (ER) | payer OTHER ==
[~2023-07-14] VITALS: Wt 138.3 kg
[2023-07-14 13:11] VITALS: BP 188/88
[2023-07-14] MEDS ORDERED: MELOXICAM15 MG PO (13:44)
[2023-07-14] MEDS ORDERED: Acetaminophen/Oxycodone 5 MG/325 MG TABLET PO ONE (13:55)
== END 2023-07-14 13:53 | disposition home or self-care (01) ==
LOC: ED 12:55
DX: S63.613A Unspecified sprain of left middle finger, initial encounter (principal); J44.9 Chronic obstructive pulmonary disease, unspecified; I10 Essential (primary) hypertension; F32.A Depression, unspecified; I25.2 Old myocardial infarction; M10.9 Gout, unspecified; Z88.5 Allergy status to narcotic agent; Z88.8 Allergy status to other drugs, medicaments and biological substances; Z98.890 Other specified postprocedural states; Z72.0 Tobacco use; W22.8XXA Striking against or struck by other objects, initial encounter; Y93.01 Activity, walking, marching and hiking; Y92.89 Other specified places as the place of occurrence of the external cause; Y99.8 Other external cause status

== ENCOUNTER 2023-10-23 12:13 | Emergency (ER) | payer OTHER ==
[~2023-10-23] VITALS: Ht 198.1 cm; Wt 134.3 kg
[~2023-10-23 12:13] MED LIST changes: +MELOXICAM15 MG PO
[2023-10-23 12:27] VITALS: BP 153/93
[2023-10-23] MEDS ORDERED: Ketorolac Tromethamine 30 MG/ML VIAL IM ONE (13:00)
[2023-10-23] MEDS ORDERED: Dexamethasone Sodium Phospha 20 MG/5 ML VIAL IM ONE (13:00)
[2023-10-23] MEDS ORDERED: Acetaminophen/Oxycodone 5 MG/325 MG TABLET PO ONE (13:00)
[2023-10-23] MEDS ORDERED: MEDROL DOSEPAK4 MG PO (14:42)
== END 2023-10-23 14:48 | disposition home or self-care (01) ==
LOC: ED 12:13
DX: M54.50 Low back pain, unspecified (principal); M25.551 Pain in right hip; I10 Essential (primary) hypertension; F32.A Depression, unspecified; I25.2 Old myocardial infarction; K21.9 Gastro-esophageal reflux disease without esophagitis; M10.9 Gout, unspecified; Z88.5 Allergy status to narcotic agent; Z88.8 Allergy status to other drugs, medicaments and biological substances; Z88.6 Allergy status to analgesic agent; Z98.890 Other specified postprocedural states; Z72.0 Tobacco use